=== PATIENT | female | born 1960 | race Caucasian/White ===

== ENCOUNTER → 2016-03-13 | Outpatient (CLI) | payer BC, OTHER ==
[~2016-03-13] MED LIST: ALLEGRA 180MG180 MG PO; AMERGE 2.5MG T2.5 MG PO; FISH OIL500 MG; INDERAL; LORTAB 7.5/5001 TAB PO; NEXIUM 20MG20 MG PO; NITROSTAT0.4 MG/TAB SL; OSTEO-BI-FLEX 21 TAB; PERCOCET 325 MG1 TA2 PO; PROAIR HFA0.09 MG/AC IH; PROBIOTIC FORMU1 CAP PO; PYRIDIUM 100MG100 MG PO; RT ADVAIR 528 DISKUS IH; THREONINE; TOPAMAX 25MG25 M1 PO; ZITHROMAX Z PA250 MG PO
== END ==
LOC: COL.RAD 07:30
DX: D49.59 Neoplasm of unspecified behavior of other genitourinary organ (principal); R53.83 Other fatigue; R61 Generalized hyperhidrosis; Z13.228 Encounter for screening for other metabolic disorders; N95.1 Menopausal and female climacteric states; G47.09 Other insomnia

== ENCOUNTER 2017-06-11 22:18 | Emergency (ER) | payer BC, OTHER ==
[~2017-06-11] VITALS: Ht 167.6 cm; Wt 77.3 kg
[2017-06-11 22:25] VITALS: TEMP 99.1
[2017-06-11 23:08] VITALS: BP 159/103; PULSE 90
== END 2017-06-11 23:20 | disposition home or self-care (01) ==
LOC: COL.ER 22:18
DX: J06.9 Acute upper respiratory infection, unspecified (principal); H65.93 Unspecified nonsuppurative otitis media, bilateral; J45.909 Unspecified asthma, uncomplicated; K21.9 Gastro-esophageal reflux disease without esophagitis; Z87.442 Personal history of urinary calculi; Z98.890 Other specified postprocedural states